=== PATIENT | female | born 1985 | race Caucasian/White ===

== ENCOUNTER 2023-12-02 00:08 | Day surgery (SDC) | payer OTHER, SELFPAY ==
--- NOTE | 2023-11-20 15:31 | PC.NURSE ---
Report to the Outpatient Waiting Room, entrance under the green pavilion located off [facility], at time _11:45AM on date _12/02/23 . Planned Procedure Time: _1:45PM . Time changes happen often and if your time is changed the preop area will call you the afternoon before. - You and your visitor will be asked to self-screen and do not enter if you have any COVID symptoms. - A mask is optional within the hospital at this time. Patients may have clear liquids (water, carbonated beverages, clear teas, apple juice) until 3 hours prior to surgery (10:45AM) with a maximum of 20 ounces. - No food from midnight until time of surgery 1. Take the following medications with a SIP of water the morning of surgery: _REXULTI, BUPROPRION, LORAZEPAM, SERTRALINE, AZSTARYS 2. DO NOT STOP ANY OF YOUR OTHER PRESCRIPTION MEDICATIONS PRIOR TO SURGERY ?EXCEPT THE FOLLOWING Medications to discontinue per physician ____VITAMIN MUTLITPACK W/ FOLIC ACID_ _ Date to take last dose 11/29/23 for vitamin pack DO NOT TAKE YOUR WEEKLY INJECTION OF ZEPBOUND ON 11/25/23 Please no make-up, nail pashto, hairspray, perfume, deodorant, or body powder the day of surgery. No jewelry (including any body piercings) or valuables the day of surgery, leave them at home. Please take a shower or bath the night before, or the morning of, surgery with an antibacterial soap. Wear comfortable, loose fitting clothing. - Jewelry must be removed prior to entering the operating room. Rings and piercings that are not removed may be cut off. - The hospital will not accept responsibility for valuables. - Please leave all valuables, including medications, at home the day of surgery. If you are going home after surgery, a licensed cattle driver must drive you home. - NO public transportation without another adult if you receive anesthesia. - We recommend that an adult stay with you for 24 hours following discharge. - We also recommend that you do not drive, make important decision, drink alcoholic beverages, or take any drugs that were not prescribed by your health care provider for at least 24 hours after your discharge time. Follow any additional instructions given to you from your surgeon. If you or anyone in your household have experienced Covid symptoms in the past week, please notify your surgeon or the nurse liaison at the phone number below for possible testing. Telephone instructions given to ___SELVIN and asked if any additional questions and then verbalized understanding. Patient advised to call surgeon office or pre surgery nurse liaison [phone] if any additional questions.
[2023-12-02] VITALS (7 sets, daily range): BP systolic 131–149; BP diastolic 80–92; PULSE 78–96; RESP 12–18; TEMP 36.2–36.5; O2SAT 99–100
--- NOTE | 2023-12-02 07:41 | WPDHPUPDATE1 ---
History and Physical Update Update Date/Time: 12/02/23 07:41 History and Physical has been reviewed, including an updated exam of the patient. There are NO changes in the patient's condition. Risks, benefits, and alternatives have been discussed and questions answered. Patient agrees to proceed with procedure.
--- NOTE | 2023-12-02 07:41 | PM.HPGS ---
History of Present Illness History of Present Illness Consent: Risks, benefits, and alternatives have been discussed and questions answered. Patient agrees to proceed with procedure. Chief complaint: Retained IUD Narrative: Trang Dior is a 38 year old female with missing IUD strings. Attempt to remove the IUD in the office was not successful. Pelvic ultrasound shows the IUD to be in place. It was recommended to undergo hysteroscopy with removal of IUD. Risks of infection, bleeding, and perforation are reviewed. Patient voices understanding and agrees to proceed. Review of Systems Review of Systems: not repeated day of surgery; patient states no changes in status [facility] Past Medical History Medical History (Updated 12/02/23 @ 07:44 by Zeny Carrasquillo MD) Asthma Depression with anxiety History of tibial fracture tibial fibula fracture repair 2023 Idiopathic intracranial hypertension PCOS (polycystic ovarian syndrome) Surgical History Surgical History (Updated 12/02/23 @ 07:43 by Zeny Carrasquillo MD) History of sinus surgery History of tonsillectomy and adenoidectomy Social History Social History Smoking packs per day: 0.25 Smoking cigarettes per day: 5.0 Years smoked: 10 Smoking pack-years: 2.50 Smoking status: Former smoker Tobacco type: cigarettes Smoking end date: 05/27/17 Alcohol intake: never Substance use: never Substance use type: does not use Living arrangements: with family Additional living arrangements comments: USES NEB PRN FOR ASTHMA HAS NOT HAD TO FOR YEARS ; PRN MDI Spiritual care concerns: No Meds Home Medications and Allergies Home Medications Medication Instructions Recorded Confirmed Type brexpiprazole 3 mg tablet (Rexulti) 3 mg PO DAILY 11/20/23 11/20/23 History buspirone 15 mg tablet 30 mg PO DAILY 11/20/23 11/20/23 History lorazepam 1 mg tablet 1 mg PO DAILY PRN Anxiety 11/20/23 11/20/23 History metformin 500 mg tablet 500 mg PO BID 11/20/23 11/20/23 History multivitamin-ferrous 1 tablet PO DAILY 11/20/23 11/20/23 History fumarate-folic acid 18 mg-400 mcg tablet pantoprazole 40 mg tablet,delayed 40 mg PO DAILY 11/20/23 11/20/23 History release serdexmethylphenidate 52.3 1 cap PO DAILY 11/20/23 11/20/23 History mg-dexmethylphenidate 10.4 mg capsule (Azstarys) sertraline 100 mg tablet 100 mg PO DAILY 11/20/23 11/20/23 History spironolactone 100 mg tablet 100 mg PO DAILY 11/20/23 11/20/23 History tirzepatide (weight loss) 2.5 2.5 mg subcut WEEKLY 11/20/23 11/20/23 History mg/0.5 mL subcutaneous pen injector (Zepbound) Allergies Allergy/AdvReac Type Severity Reaction Status Date / Time amoxicillin [From Augmentin] Allergy Unknown Rash Verified 11/20/23 15:30 clavulanic acid Allergy Unknown Rash Verified 11/20/23 15:30 [From Augmentin] doxycycline AdvReac Unknown Other Verified 11/20/23 15:31 Exam Const: General: healthy appearing and alert Orientation/consciousness: patient oriented x3 Resp: Effort & Inspection: normal respiratory effort : External Female Exam: normal external appearance Speculum Exam - Vagina: normal appearance of the vagina and normal vaginal discharge Speculum Exam - Cervix: normal appearance of the cervix Bimanual exam- vagina & uterus: uterine size normal and consistency normal Bimanual Exam- Adnexa, other: normal adnexae and No adnexal tenderness Neuro: General: patient oriented x3 Assessment and Plan Assessment and plan (1) IUD strings lost: Code(s): T83.32XA - Displacement of intrauterine contraceptive device, initial encounter Status: Acute Assessment and Plan: plan to proceed with hysteroscopic IUD removal
[2023-12-02] MEDS: LACTATED RINGERS 1,000 ML 30 ML IV CONT (11:30)
--- NOTE | 2023-12-02 11:35 | WPDANESEPPF ---
Anes - Initial Pre Proc Eval Procedure: Operation Date: 12/02/23 13:45 Proposed Procedures p Hysteroscopy with Intrauterine Device Removal - Zeny Carrasquillo MD Date/Time: 12/02/23 11:35 Surgeon: Zeny Carrasquillo MD Pre Op Diagnosis: Retained IUD Patient Data Age: 38 Gender: F Height: 1.63 m Weight: 127 kg Allergies Allergy/AdvReac Type Severity Reaction Status Date / Time amoxicillin [From Augmentin] Allergy Unknown Rash Verified 11/20/23 15:30 clavulanic acid Allergy Unknown Rash Verified 11/20/23 15:30 [From Augmentin] doxycycline AdvReac Unknown Other Verified 11/20/23 15:31 Home Medications Medication Instructions Recorded Confirmed Type brexpiprazole 3 mg tablet (Rexulti) 3 mg PO DAILY 11/20/23 11/20/23 History buspirone 15 mg tablet 30 mg PO DAILY 11/20/23 11/20/23 History lorazepam 1 mg tablet 1 mg PO DAILY PRN Anxiety 11/20/23 11/20/23 History metformin 500 mg tablet 500 mg PO BID 11/20/23 11/20/23 History multivitamin-ferrous 1 tablet PO DAILY 11/20/23 11/20/23 History fumarate-folic acid 18 mg-400 mcg tablet pantoprazole 40 mg tablet,delayed 40 mg PO DAILY 11/20/23 11/20/23 History release serdexmethylphenidate 52.3 1 cap PO DAILY 11/20/23 11/20/23 History mg-dexmethylphenidate 10.4 mg capsule (Azstarys) sertraline 100 mg tablet 100 mg PO DAILY 11/20/23 11/20/23 History spironolactone 100 mg tablet 100 mg PO DAILY 11/20/23 11/20/23 History tirzepatide (weight loss) 2.5 2.5 mg subcut WEEKLY 11/20/23 11/20/23 History mg/0.5 mL subcutaneous pen injector (Zepbound) Patient hx anesthesia problems: none Family hx anesthesia problems: none Results Review: All pre-operative results and documents have been reviewed as part of the pre-operative evaluation. [facility] Past Medical History Medical History Asthma Depression with anxiety History of tibial fracture tibial fibula fracture repair 2023 Idiopathic intracranial hypertension PCOS (polycystic ovarian syndrome) Surgical History Surgical History History of sinus surgery History of tonsillectomy and adenoidectomy Social History Social History Smoking packs per day: 0.25 Smoking cigarettes per day: 5.0 Years smoked: 10 Smoking pack-years: 2.50 Smoking status: Former smoker Tobacco type: cigarettes Smoking end date: 05/27/17 Alcohol intake: never Substance use: never Substance use type: does not use Living arrangements: with family Additional living arrangements comments: USES NEB PRN FOR ASTHMA HAS NOT HAD TO FOR YEARS ; PRN MDI Spiritual care concerns: No Anes - Eval Final PreProcedure Day of Procedure 12/02/23 11:35 Patient weight: morbidly obese Heart: regular rate and rhythm Lungs: clear to auscultation Airway: Mallampati scale class II Neurological: alert and oriented Last oral intake: >/= 8 hours ASA classification: III Emergent: no Anesthetic plan: proceed Anesthesia type and monitoring: general GIVS and standard monitoring Results Review: All pre-operative results and documents have been reviewed as part of the pre-operative evaluation. Informed Consent: The patient's anesthetic plan and its attendant risks and benefits were discussed with the patient/family/POA. Questions were solicited and answers provided to the satisfaction of the patient/family/POA.
[2023-12-02] MEDS: ACETAMINOPHEN 500 MG TABLET 1000 MG PO (11:40)
--- NOTE | 2023-12-02 12:10 | W.PM.PROC2 ---
Procedure Note - Detailed Date of Procedure 12/02/23 Pre-op Diagnosis Retained IUD Post-op Diagnosis Same Procedure Performed Hysteroscopic IUD removal Surgeon Zeny Carrasquillo MD Anesthesia MAC Findings Uterus sounds to 8 cm; IUD in place with strings pointing upward; grossly normal apperearance Description of Procedure Patient taken to OR and placed in dorsal lithotomy position. She was prepped and draped in sterile manner. [place] speculum placed and cervix grasped with tenaculum. Uterus sounded and hysteroscope placed. IUD strings grasp with graspers through hysteroscope and removed with hysteroscope. IUD intact and discarded. All instruments removed and patient awakened from anesthesia and taken to recovery. Sponge, needle, and instrument counts correct per OR staff. Estimated Blood Loss 5 Drains No Packing No Pathology None sent (IUD discarded) Complications No immediate complications Condition Stable Disposition PACU
== END 2023-12-02 14:00 | disposition home or self-care (01) ==
PROVIDERS: Visit Provider Obstetrics & Gynecology Gynecology
PROC: 0U5B8ZZ Destruction of Endometrium, Via Natural or Artificial Opening Endoscopic (ICD-10-PCS; CPT 58563; principal; 2023-12-02 13:45)
DX: T83.32XA Displacement of intrauterine contraceptive device, initial encounter (principal); Z87.891 Personal history of nicotine dependence; J45.909 Unspecified asthma, uncomplicated; F41.8 Other specified anxiety disorders
CPT/HCPCS: 58562; A9270; J1100; J2250; J2405; J2704; J3010; J7120